=== PATIENT | male | born 1985 | race Caucasian/White ===

== ENCOUNTER 2017-09-12 19:20 | Emergency (ER) | payer MEDICAID ==
[~2017-09-12] VITALS: Ht 182.9 cm; Wt 77.1 kg
[2017-09-13 02:00] VITALS: BP 112/82
[2017-09-13] MEDS ORDERED: LORazepam 0.5 MG TAB PO ONE (02:00)
== END 2017-09-13 03:23 | disposition home or self-care (01) ==
LOC: ER 19:20 → EDBD 19:20 → ER 09-13 03:23
DX: F41.9 Anxiety disorder, unspecified (principal); F12.10 Cannabis abuse, uncomplicated; J45.909 Unspecified asthma, uncomplicated

== ENCOUNTER 2017-09-15 20:34 | Inpatient (IN) | payer MEDICAID ==
[~2017-09-15] VITALS: Ht 188 cm; Wt 71.7 kg
[2017-09-16 03:33] LABS: Basophils # (auto) 0 uL; Basophils % (auto) 0.6 % (0.0-2.0); Eosinophils # (auto) 0.1 uL; Eosinophils % (auto) 1.8 % (0.0-7.0); Lymphocytes # (auto) 1.3 uL; Lymphocytes % (auto) 34.2 % (10.0-50.0); White Blood Cell 3.8 10^3/uL (4.4-10.8)
[2017-09-16 03:40] LABS: Hemoglobin 14.8 g/dL (13.5-17.5); Mean Corpuscular Hemoglobin 26.6 pg (28.0-32.0); Mean Corpuscular Hgb Conc. 34.4 g/dL (32.0-36.0); Mean Corpuscular Volume 77.3 fL (80.0-100.0); Monocytes # (auto) 0.4 uL; Monocytes % (auto) 11.2 % (0.0-12.0); Neutrophils % (auto) 52.2 % (37.0-80.0); Nucleated Red Blood Cells % 0.1 %; Platelet Count (auto) 226 10^3/uL (140-450); Red Blood Cells 5.56 10^6/uL (4.5-5.90); Red Cell Distribution Width 17.9 % (11.8-14.3)
[2017-09-16 03:51] LABS: Alanine Aminotransferase 15 U/L (16-61); Amylase 130 U/L (25-115); Anion Gap 9 (5-15); Aspartate Aminotransferase 13 U/L (15-37); BUN/Creatinine Ratio 13.6; Blood Urea Nitrogen 14 mg/dL (7-18); Calcium 9.5 mg/dL (8.5-10.1); Carbon Dioxide 24 mmol/L (21-32); Chloride 105 mmol/L (98-107); GFR African American 109 mL/min; GFR Non-African American 90 mL/min; Glucose 74 mg/dL (74-106); Lipase 243 U/L (73-393); Potassium 3.9 mmol/L (3.5-5.1); Sodium 138 mmol/L (136-145)
[2017-09-16 03:56] LABS: Alkaline Phosphatase 66 U/L (45-117); Bilirubin, Total 2.2 mg/dL (0.2-1.0); Total Protein 7.8 g/dL (6.4-8.2)
[2017-09-16 07:25] LABS: Alcohol, Urine < 3.0 mg/dL (0-5); Amphetamine Screen, Urine NEGATIVE (NEGATIVE); Barbiturate Scree,Urine NEGATIVE (NEGATIVE); Cannabinoid Screen, Urine POSITIVE (NEGATIVE); Cocaine Screen, Urine NEGATIVE (NEGATIVE); Opiate Scree,Urine NEGATIVE (NEGATIVE); Phencyclidine Screen, Urine NEGATIVE (NEGATIVE)
[2017-09-16 07:33] LABS: Benzodiazephine Screen, Urine NEGATIVE (NEGATIVE)
[2017-09-16 07:34] LABS: Urine Bacteria NONE SEEN /hpf (None Seen); Urine Blood Negative /uL (Negative); Urine Mucus FEW (None Seen); Urine Specific Gravity 1.019 (1.001-1.035); Urine WBC 1 /hpf (0 - 3)
[2017-09-16] MEDS ORDERED: ONDANSETRON HCL 4 MG/2 ML VIAL IV ONE (07:45)
[2017-09-16] MEDS ORDERED: NALBUPHINE HCL 10 MG/1ml INJECTION IV ONE (07:45)
[2017-09-16] MEDS ORDERED: diphenhdrAMINE HCL 50 MG/1 ML VL IV ONE (09:45)
[2017-09-16] MEDS ORDERED: MORPHINE SULFATE 4 MG/ML SYR/VIAL IV PRN (10:15)
[2017-09-16] MEDS ORDERED: HYDROcodone-ACET 5/325MG TAB PO PRN (10:15)
[2017-09-16] MEDS ORDERED: TEMAZEPAM 15 MG CAP PO PRN (10:15)
[2017-09-16] MEDS ORDERED: PROMETHAZINE HCL 25 MG/ML 1ML IV PRN (10:15)
[2017-09-16] MEDS ORDERED: ACETAMINOPHEN 500 MG TAB PO PRN (10:15)
[2017-09-16] MEDS ORDERED: LORazepam 0.5 MG TAB PO PRN (10:15)
[2017-09-16] MEDS ORDERED: FAMOTIDINE 20 MG TAB PO ONE (10:30)
[2017-09-16] MEDS: SODIUM CHLORIDE 0.9% 1,000 ML IV SCH ×2 (12:31→20:12)
[2017-09-16 16:21] VITALS: BP 148/91
[2017-09-16] MEDS: PANTOPRAZOLE 40 MG TAB PO SCH (21:29)
[2017-09-16 22:00] VITALS: BP 123/70
[2017-09-16] MEDS ORDERED: FAMOTIDINE 20 MG TAB PO SCH (22:00)
[2017-09-17 05:36] VITALS: BP 139/81
[2017-09-17] MEDS: SODIUM CHLORIDE 0.9% 1,000 ML IV SCH ×2 (05:54→16:12)
[2017-09-17 07:08] LABS: Amylase 113 U/L (25-115); Lipase 190 U/L (73-393)
[2017-09-17 07:21] LABS: Basophils # (auto) 0 uL; Eosinophils # (auto) 0.1 uL; Neutrophils # (auto) 2.6 uL; White Blood Cell 4.1 10^3/uL (4.4-10.8)
[2017-09-17 07:24] LABS: Basophils % (auto) 0.6 % (0.0-2.0); Eosinophils % (auto) 2.7 % (0.0-7.0); Hemoglobin 14.6 g/dL (13.5-17.5); Lymphocytes % (auto) 23.7 % (10.0-50.0); Mean Corpuscular Hgb Conc. 33.1 g/dL (32.0-36.0); Mean Corpuscular Volume 78.5 fL (80.0-100.0); Monocytes # (auto) 0.4 uL; Monocytes % (auto) 10.1 % (0.0-12.0); Neutrophils % (auto) 62.9 % (37.0-80.0); Nucleated Red Blood Cells % 0.4 %; Platelet Count (auto) 236 10^3/uL (140-450); Red Blood Cells 5.61 10^6/uL (4.5-5.90); Red Cell Distribution Width 17.9 % (11.8-14.3)
[2017-09-17 08:00] VITALS: BP 145/76
[2017-09-17 09:00] VITALS: BP 145/76
[2017-09-17] MEDS: PANTOPRAZOLE 40 MG TAB PO SCH (09:28)
[2017-09-17] MEDS ORDERED: PANT40T PO (12:33)
[2017-09-17 13:00] VITALS: BP 145/76
[2017-09-17 13:02] LABS: Cholesterol 110 mg/dL (< 200); HDL Cholesterol 61 mg/dL (40-59); LDL Cholesterol 53 mg/dL (< 100); Triglycerides 59 mg/dL (< 150)
[2017-09-17 13:04] VITALS: BP 145/76
== END 2017-09-17 17:21 | disposition home or self-care (01) | DRG 241 ==
LOC: EDBD 20:34 → ER 20:39 → OVERFLOW 20:40 → WEST WING 09-16 16:39
PROVIDERS: ADMIT Internal Medicine; ATTEND Internal Medicine
DX: K29.70 Gastritis, unspecified, without bleeding (principal); D72.819 Decreased white blood cell count, unspecified; F41.9 Anxiety disorder, unspecified; F12.90 Cannabis use, unspecified, uncomplicated; F17.210 Nicotine dependence, cigarettes, uncomplicated; J45.909 Unspecified asthma, uncomplicated; G47.00 Insomnia, unspecified; K82.8 Other specified diseases of gallbladder; Z83.3 Family history of diabetes mellitus
CPT/HCPCS: 36415; 71045; 74176; 74181; 76705; 78226; 80053; 80061; 80307; 81001; 82150; 83690; 84484; 85025; 85652; 86141; 96374; 96375; J2405